=== PATIENT | female | born 1970 | race Caucasian/White ===

== ENCOUNTER → 2017-11-04 | Outpatient (CLI) | payer OTHER ==
[~2017-11-04] VITALS: Ht 165.1 cm; Wt 79.4 kg
[~2017-11-04] MED LIST: ALPRAZOLAM0.25 M2 PO; ASPIRIN81 M2 PO; CARBAMAZEPINE200 MG PO; CARVEDILOL3.125 MG PO; CARVEDILOL6.25 MG PO; COUMADIN1 MG PO; DIMENHYDRINATE50 MG PO; FLOVENT 11120 INHALA IH; IRON325 M1 PO; KEPPRA500 MG PO; KEPPRA750 MG PO; LAMICTAL XR50 MG PO; LAMICTAL100 MG PO; LEVETIRACETAM500 MG PO; LO-DOSE ASPIRIN81 M1 PO; LOPRESSOR25 MG PO; LOVENOX80 MG/0.8 SC; MIGRAINE RELIE1 EAC2 PO; MIRALAX119 GM PO; MOTRIN IB200 MG PO; MOTRIN800 MG PO; PRINIVIL5 MG PO; PRISTIQ50 MG PO; PROAIR HFA8.5 GM IH; ROXICODONE5 MG PO; SKELAXIN800 MG PO; STOOL SOFTENER100 MG PO; TEGRETOL200 MG PO; TYLENOL REGULA325 MG PO
== END | disposition home or self-care (01) ==
LOC: AMB 11:24
DX: K64.8 Other hemorrhoids (principal); D12.2 Benign neoplasm of ascending colon; K62.1 Rectal polyp; K59.09 Other constipation; K92.1 Melena; Z82.49 Family history of ischemic heart disease and other diseases of the circulatory system; Z82.3 Family history of stroke; Z83.3 Family history of diabetes mellitus; Z87.891 Personal history of nicotine dependence; Z88.0 Allergy status to penicillin; Z88.5 Allergy status to narcotic agent; Z88.8 Allergy status to other drugs, medicaments and biological substances
CPT/HCPCS: 88305; 93005; J2250